=== PATIENT | female | born 1945 | race Caucasian/White ===

== ENCOUNTER → 2017-03-22 | Outpatient (CLI) | payer MEDICARE, OTHER ==
[~2017-03-22] MED LIST: AMLO25TA PO; ASPI81TA85 PO; ATOR1TAB21 PO; CEVI1CAP PO; CLOP75TA2 PO; CYCL25CA2 PO; D 1010004 PO; FLUTISP; HYDR200T3 PO; HYDR25TAB PO; LEFL1TAB4 PO; LISI-538 PO; METO25TA74 PO; NITR4TASL SL; PANT40TA2 PO; RIZA10TA4 PO; TRAM50TA2 PO
[2017-03-22 16:16] LABS: BASO % 0.9 % (0.0-1.0); EOS # 0.2 K/mm3 (0.0-0.50); EOS % 3.5 % (0.0-3.0); LARGE UNSTAINED CELL # 0.2 K/mm3 (0.0-0.4); LARGE UNSTAINED CELL % 2.7 % (0.0-4.0); LYMPH # 1.1 K/mm3 (1.5-4.5); LYMPH % 16.7 % (24.0-44.0); MEAN CORPUSCULAR HEMOGLOBIN 31.3 pg (27.0-33.0); MEAN CORPUSCULAR HGB CONC 33.6 g/dl (32.0-36.5); MEAN CORPUSCULAR VOLUME 93.3 fl (80.0-96.0); MONO # 0.4 K/mm3 (0.0-0.8); NEUTROPHILS # 4.1 K/mm3 (1.8-7.7); NEUTROPHILS % 69.1 % (36.0-66.0); PLATELET COUNT, AUTOMATED 189 k/mm3 (150-450); RED CELL DISTRIBUTION WIDTH 13.4 % (11.5-14.5); WHITE BLOOD COUNT 5.9 K/mm3 (4.0-10.0)
[2017-03-22 16:44] LABS: ANION GAP 5 MEQ/L (8-16); BLOOD UREA NITROGEN 26 MG/DL (7-18); CALCIUM LEVEL 8.6 MG/DL (8.8-10.2); CARBON DIOXIDE LEVEL 29 MEQ/L (21-32); CHLORIDE LEVEL 107 MEQ/L (98-107); CREATININE FOR GFR 1.25 MG/DL (0.55-1.02); GLUCOSE, FASTING 87 MG/DL (83-110); POTASSIUM SERUM 5.1 MEQ/L (3.5-5.1); SODIUM LEVEL 141 MEQ/L (136-145)
== END ==
LOC: M SMT 14:50
PROVIDERS: ATTEND Internal Medicine Cardiovascular Disease
DX: I25.10 Atherosclerotic heart disease of native coronary artery without angina pectoris (principal); R07.9 Chest pain, unspecified; R06.00 Dyspnea, unspecified

== ENCOUNTER → 2017-04-12 | Outpatient (CLI) | payer MEDICARE, OTHER ==
[~2017-04-12] MED LIST changes: -CYCL25CA2 PO; +CYCL25CA6 PO; +METO1TAB32 PO; -METO25TA74 PO
[2017-04-12 13:37] LABS: ALBUMIN 3.6 GM/DL (3.2-5.2); ALBUMIN/GLOBULIN RATIO 1.44 (1.00-1.93); BILIRUBIN,TOTAL 0.6 MG/DL (0.2-1.0); CALCIUM LEVEL 9.1 MG/DL (8.8-10.2); CREATININE FOR GFR 1.09 MG/DL (0.55-1.02); GLOMERULAR FILTRATION RATE 52.7 (>39); POTASSIUM SERUM 4.8 MEQ/L (3.5-5.1); TOTAL PROTEIN 6.1 GM/DL (6.4-8.2)
== END ==
LOC: M SMT 08:25
PROVIDERS: ATTEND Internal Medicine
DX: I10 Essential (primary) hypertension (principal)

== ENCOUNTER → 2017-10-17 | Outpatient (CLI) | payer MEDICARE, OTHER ==
[2017-10-17 18:53] LABS: ALBUMIN 3.9 GM/DL (3.2-5.2); ALKALINE PHOSPHATASE 60 U/L (45-117); ALT/SGPT 22 U/L (12-78); ANION GAP 6 MEQ/L (8-16); AST/SGOT 19 U/L (7-37); BILIRUBIN,TOTAL 0.5 MG/DL (0.2-1.0); BLOOD UREA NITROGEN 17 MG/DL (7-18); CALCIUM LEVEL 8.7 MG/DL (8.8-10.2); CARBON DIOXIDE LEVEL 28 MEQ/L (21-32); CHLORIDE LEVEL 106 MEQ/L (98-107); CHOLESTEROL LEVEL 150 MG/DL (<200); CHOLESTEROL RISK RATIO 2.142 (<5); CREATININE FOR GFR 1.16 MG/DL (0.55-1.02); GLOMERULAR FILTRATION RATE 48.9 (>39); GLUCOSE, FASTING 88 MG/DL (83-110); HDL CHOLESTEROL 70 MG/DL (>40); LDL CHOLESTEROL 54.2 MG/DL (<100); MAGNESIUM LEVEL 2.1 MG/DL (1.8-2.4); NON-HDL-C 80 MG/DL; POTASSIUM SERUM 4.6 MEQ/L (3.5-5.1); SODIUM LEVEL 140 MEQ/L (136-145); TOTAL PROTEIN 6.5 GM/DL (6.4-8.2); TRIGLYCERIDES LEVEL 129 MG/DL (<150)
== END ==
LOC: M SMT 11:08
DX: I25.10 Atherosclerotic heart disease of native coronary artery without angina pectoris (principal); I10 Essential (primary) hypertension
CPT/HCPCS: 83735

== ENCOUNTER → 2019-07-11 | Outpatient (CLI) | payer MEDICARE, OTHER ==
[~2019-07-11] MED LIST changes: +ACTE20IN INJ; +AMLO5TAB6 PO; +CALC1CAP31 PO; +FERR32TA PO; +FLUT50SP17; -FLUTISP; +HYDR-2541 PO; -HYDR25TAB PO; +METO1TAB87 PO; +OMEGCAP4 PO; -PANT40TA2 PO; +PANT40TA3 PO; +PRESCAP PO; +REST0.05 OU; -RIZA10TA4 PO; +RIZA10TA58 PO
[2019-07-11 15:02] LABS: ALBUMIN 3.6 GM/DL (3.2-5.2); PERCENT SATURATION 28.6 % (13.2-45.0)
== END ==
LOC: M LAB 14:02
PROVIDERS: ATTEND Orthopaedic Surgery Adult Reconstructive Orthopaedic Surgery
DX: Z01.818 Encounter for other preprocedural examination (principal); M25.551 Pain in right hip; M16.11 Unilateral primary osteoarthritis, right hip; D63.8 Anemia in other chronic diseases classified elsewhere

== ENCOUNTER 2019-07-15 14:03 | Observation (INO) | payer MEDICARE, OTHER ==
[~2019-07-15] VITALS: Ht 160 cm; Wt 73.8 kg
[~2019-07-15 14:03] MED LIST changes: -ACTE20IN INJ; -AMLO5TAB6 PO; -CALC1CAP31 PO; -FERR32TA PO; -METO1TAB87 PO; -OMEGCAP4 PO; -PRESCAP PO; -REST0.05 OU
[2019-07-15] MEDS ORDERED: ACTE20IN INJ (14:28)
[2019-07-15] MEDS ORDERED: CALC1CAP31 PO (14:28)
--- NOTE | 2019-07-15 15:10 | REP ---
Portable chest x-ray: Single view. History: Chest pain. Comparison study: July 25, 2012. Findings: The patient is status post prior median sternotomy. EKG monitoring electrodes are seen. There are degenerative changes in the thoracic aorta and in the left shoulder. The heart is not felt to be enlarged. The lungs are well inflated and clear. Pleural angles are sharp. Pulmonary vasculature is not increased. Impression: Prior sternotomy. Otherwise no acute disease. Electronically Signed by Bc Riley MD 07/15/2019 06:36 P
[2019-07-15 15:21] LABS: BASO # 0.1 10^3/uL (0.0-0.2); BASO % 0.8 % (0.0-1.0); EOS % 0.7 % (0.0-3.0); HEMATOCRIT 37.8 % (36.0-47.0); HEMOGLOBIN 12.9 g/dl (12.0-15.5); LYMPH # 0.8 10^3/uL (1.5-5.0); LYMPH % 12.8 % (24.0-44.0); MEAN CORPUSCULAR HEMOGLOBIN 33.4 pg (27.0-33.0); MEAN CORPUSCULAR HGB CONC 34.1 g/dl (32.0-36.5); MEAN CORPUSCULAR VOLUME 97.9 fl (80.0-96.0); MONO # 0.7 10^3/uL (0.0-0.8); MONO % 11.3 % (0.0-5.0); NEUTROPHILS # 4.4 10^3/uL (1.5-8.5); NEUTROPHILS % 73.7 % (36.0-66.0); PLATELET COUNT, AUTOMATED 182 10^3/uL (150-450); RED BLOOD COUNT 3.86 10^6/uL (4.00-5.40)
[2019-07-15 15:32] LABS: INR 1.1; PROTHROMBIN TIME 13.9 SECONDS (11.8-14.0)
[2019-07-15 15:33] LABS: PARTIAL THROMBOPLASTIN TIME 23.9 SECONDS (25.0-38.4)
[2019-07-15 15:52] LABS: ALBUMIN 3.5 GM/DL (3.2-5.2); BILIRUBIN,DIRECT 0.2 MG/DL (0.0-0.2); BILIRUBIN,TOTAL 0.6 MG/DL (0.2-1.0); CALCIUM LEVEL 8.4 MG/DL (8.8-10.2); CK-MB VALUE MASS 2.2 NG/ML (<3.6); CREATININE FOR GFR 1.06 MG/DL (0.55-1.30); FREE T4 1.04 NG/DL (0.76-1.46); GLOMERULAR FILTRATION RATE 53.9 (>39); MB/CK RELATIVE INDEX 1.91 (< OR =4); THYROID STIMULATING HORMONE 1.13 uIU/ML (0.358-3.740); TOTAL PROTEIN 5.7 GM/DL (6.4-8.2); TROPONIN I 0.03 NG/ML (< 0.10)
[2019-07-15] MEDS ORDERED: ISOVUE-370 76% 100ML VIAL (Q9967) As Ordered ONE (16:23)
[2019-07-15] MEDS: NITROGLYCERIN 0.4 MG SUBL TABLET SL PRN ×2 (16:54→17:02)
[2019-07-15] MEDS ORDERED: PROHANCE 279.3MG/ML 15ML VIAL (A9576) As Ordered ONE (17:27)
[2019-07-15] MEDS ORDERED: FERR32TA PO (18:32)
[2019-07-15] MEDS ORDERED: OMEGCAP4 PO (18:32)
[2019-07-15] MEDS ORDERED: PRESCAP PO (18:32)
[2019-07-15] MEDS ORDERED: METO1TAB87 PO (18:32)
[2019-07-15] MEDS ORDERED: REST0.05 OU (18:32)
[2019-07-15] MEDS ORDERED: LABETALOL HCL 100 MG/20 ML VIAL IV STA ×2 (20:23→21:18)
[2019-07-15 21:05] LABS: CK-MB VALUE MASS 2.2 NG/ML (<3.6); MB/CK RELATIVE INDEX 2.06 (< OR =4); TROPONIN I 0.03 NG/ML (< 0.10)
--- NOTE | 2019-07-15 21:11 | REPVR ---
PROCEDURE INFORMATION: Exam: MR Angiogram Chest Without and With Contrast Exam date and time: 07/15/2019 5:04 PM Clinical history: 74 years old, female; Other: Chest pain; Additional info: HTN, chest pain rad to back, R/O dissection TECHNIQUE: Imaging protocol: MR angiogram chest without or with intravenous contrast. Contrast material: PROHANCE; Contrast volume: 15 ml; Contrast route: IV; COMPARISON: CR PORTABLE CHEST X-RAY 07/15/2019 2:17 PM FINDINGS: Limitations: Motion artifact does moderately limit the sensitivity of this examination. Aorta: 2.9 cm ascending aorta. Tortuosity of the aortic arch. Mild aortic atherosclerosis. Heart: Numerous renal cysts measuring up to 1.5 cm. Moderate cardiac enlargement. Cardiac bypass graft clips cause associated artifact. Lungs: Unremarkable. Pleural space: No pleural effusion. Gallbladder and bile ducts: Cholecystectomy. Bones/joints: Sternotomy. Mild thoracic spondylosis with several tiny disc bulge/protrusions. Soft tissues: Mild left subclavian artery origin stenosis. IMPRESSION: No aneurysm or dissection. Electronically signed by: Andrés Barrientos On 07/15/2019 21:10:39 PM
[2019-07-15] MEDS ORDERED: MAALOX 30 ML SUSP *UDC PO PRN (23:00)
[2019-07-15] MEDS ORDERED: MOM 30ML SUSPENSION UDC PO PRN (23:00)
[2019-07-15] MEDS ORDERED: ONDANSETRON 4MG/2ML VIAL (J2405) IV PRN (23:00)
[2019-07-15] MEDS ORDERED: NITROGLYCERIN 0.4 MG SUBL TABLET SL PRN (23:00)
[2019-07-15] MEDS ORDERED: ACETAMINOPHEN TAB 650MG DOSE (2X325MG) PO PRN (23:00)
[2019-07-15] MEDS ORDERED: traMADol 50 MG TAB PO PRN (23:00)
--- NOTE | 2019-07-15 23:02 | HPEPDOC ---
General Date of Admission 07/15/19 Date of Service: Jul 15, 2019 Primary Care Physician: Rolo Sweeney Chief Complaint The patient is a 74-year-old female admitted with a reason for visit of Chest Pain. Source: Patient Exam Limitations: No limitations Timing/Duration: Other Severity: Moderate (today) Associated Symptoms: Vomiting History of Present Illness This is a 74 years old white female with past medical history of CAD. Essential hypertension, pericardial pain, hyperlipidemia, has been complaining of vomiting on and off since last 2 to weeks, and again today. She had midsternal chest pain radiating to her son, neck, not associated with nausea, vomiting, not relieved with the nitroglycerin, not exacerbated by any position. She was seen by Dr. Ayon, in ED, he wants patient to be admitted for better control of blood pressure and follow-up troponin levels. Patient did not had any episode of vomiting while in the ED. Patient denies nausea, abdominal pain, shortness of breath, dizziness, etc. Home Medications Scheduled Amlodipine Besylate (Amlodipine Besylate) 2.5 Mg Tab, 2.5 MG PO QHS, (Reported) Aspirin (Aspir 81) 81 Mg Tab, 81 MG PO QHS, (Reported) Atorvastatin Calcium (Atorvastatin Calcium) 20 Mg Tab, 20 MG PO DAILY, (Repo rted) NOON Calcitriol (Calcitriol) 0.25 Mcg Capsule, 0.25 MCG PO DAILY, (Reported) Cholecalciferol (Vitamin D3) (Vitamin D3) 1,000 Unit Cap, 1,000 UNIT PO DAILY, (Reported) Clopidogrel Bisulfate (Clopidogrel) 75 Mg Tab, 75 MG PO DAILY, (Reported) Cyclosporine (Restasis) 0.05% Droperette, 1 DROP OU QHS, (Reported) Ferrous Gluconate (Ferrous Gluconate) 324 Mg Tablet, 324 MG PO DAILY, (Reported) Hydroxychloroquine Sulfate (Hydroxychloroquine Sulfate) 200 Mg Tab, 200 MG PO BID, (Reported) Leflunomide (Leflunomide) 20 Mg Tab, 20 MG PO DAILY, (Reported) Metoprolol Tartrate (Metoprolol Tartrate) 25 Mg Tablet, 25 MG PO BID, (Reported) [place]-3/Dha/Epa/Fish Oil ([place]-3 Fish Oil 1,000 mg Sfgl) 1,000 Mg Capsule, 3 CAP PO DAILY, (Reported) Pantoprazole Sodium (Pantoprazole Sodium) 40 Mg Tab, 40 MG PO QHS, (Reported) Rizatriptan Benzoate (Rizatriptan) 10 Mg Tab, 10 MG PO DAILY, (Reported) Tocilizumab (Actemra) 162 Mg/0.9 Ml Syringe, 0.9 ML INJ 1XWK, (Reported) Vit A/Vit C/Vit E/Zinc/Copper (Preservision Areds Softgel) 1 Each Capsule, 1 CAP PO DAILY, (Reported) Scheduled PRN Cevimeline HCl (Cevimeline HCl) 30 Mg Cap, 30 MG PO BID PRN for DRY MOUTH, (Reported) Nitroglycerin (Nitrostat) 0.4 Mg Subl, 0.4 MG SL for CHEST PAIN, (Reported) Tramadol HCl (Tramadol HCl) 50 Mg Tab, 50 MG PO for PAIN, (Reported) Allergies Coded Allergies: Iodinated Contrast Media (Verified Allergy, Severe, 07/15/19) Penicillins (Verified Allergy, Intermediate, RASH, 07/15/19) lactose (Verified Allergy, Unknown, 07/15/19) fluorescein (Verified Adverse Reaction, Mild, FAINTED/ SYNCOPY, 07/15/19) Past Medical History Medical History Hypertension, CAD, CABG, hyperlipidemia, cholecystectomy, knee surgery, partial hysterectomy and shoulder surgery Surgical History As above Social History * Smoker: Denies Alcohol: Denies A-FIB/CHADSVASC A-FIB History Current/History of A-Fib/PAF?: No Review of Systems Constitutional: Denies: Chills, Fever, Malaise, Night Sweats, Weakness, Fatigue, Weight Loss, Lethargy, Other Eyes: Denies: Pain, Vision change, Conjunctivae inflammation, Eyelid inflammation, Redness, Other ENT: Denies: Head Aches, Ear Pain, Dysphagia, Sinus Congestion, Post Nasal Drip, Sore Throat, Epistaxis, Other Symptoms Skin: Denies: Rash, Lesions, Jaundice, Bruising, Itching, Dry, Breakdown, Nail Changes, Other Pulmonary: Denies: Dyspnea, Cough, Pleuritic Chest Pain, Other Symptoms Cardiovascular: Reports: Chest Pain Gastrointestinal: Reports: Vomiting Genitourinary: Denies: Dysuria, Frequency, Incontinence, Hematuria, Retention, Other Symptoms Hematologic: Denies: Bruising, Bleeding Excessively, Petecchia, Purpura, Enlarged Lymph Nodes, Other Hematologic Endocrine: Denies: Polydipsia, Polyphagia, Polyuria, Heat Intolerance, Cold Intolerance, Other Endocrine Sx Musculoskeletal: Denies: Neck Pain, Back Pain, Shoulder Pain, Arm Pain, Hand Pain, Leg Pain, Foot Pain, Joint Pain, Muscle Pain, Spasms, Other Symptoms Neurological: Denies: Weakness, Numbness, Incoordination, Change in speech, Confusion, Seizures, Other Symptoms Psych: Denies: Mood Normal, Anxiety, Depression, Memory Issues, Thoughts of Self Harm, Anger, Thoughts of Harming Other, Other Psych Physical Examination General Exam: Positive: Alert, Cooperative Eye Exam: Positive: PERRLA, Conjunctiva & lids normal ENT Exam: Positive: Atraumatic, Mucous membr. moist/pink Neck Exam: Positive: Supple, JVD Chest Exam: Positive: Clear to auscultation, Normal air movement Heart Exam: Positive: Rate Normal, Normal S1, Normal S2 Abdomen Exam: Positive: Normal bowel sounds, Soft Extremity Exam: Positive: Normal pulses Skin Exam: Positive: Nl turgor and temperature Neuro Exam: Positive: Normal Gait, Strength at 5/5 X4 ext, Sensation Intact Psych Exam: Positive: Mental status NL, Mood NL, Oriented x 3 Vital Signs Vital Signs Date Time Temp Pulse Resp B/P (MAP) Pulse Ox O2 Delivery O2 Flow Rate FiO2 07/15/19 22:14 73 176/79 (111) 07/15/19 21:39 20 96 Room Air 07/15/19 14:10 98.4 Laboratory Data Labs 24H Laboratory Tests 2 07/15/19 15:05: Immature Granulocyte % (Auto) 0.7, White Blood Count 6.0, Red Blood Count 3.86L, Hemoglobin 12.9, Hematocrit 37.8, Mean Corpuscular Volume 97.9H, Mean Corpuscular Hemoglobin 33.4H, Mean Corpuscular Hemoglobin Concent 34.1, Red Cell Distribution Width 13.0, Platelet Count 182, Neutrophils (%) (Auto) 73.7H, Lymphocytes (%) (Auto) 12.8L, Monocytes (%) (Auto) 11.3H, Eosinophils (%) (Auto) 0.7, Basophils (%) (Auto) 0.8, Neutrophils # (Auto) 4.4, Lymphocytes # (Auto) 0.8L, Monocytes # (Auto) 0.7, Eosinophils # (Auto) 0.0, Basophils # (Auto) 0.1, Nucleated Red Blood Cells % (auto) 0.0, Prothrombin Time 13.9, Prothromb Time International Ratio 1.10, Activated Partial Thromboplast Time 23.9L, Anion Gap 6L, Glomerular Filtration Rate 53.9, Calcium Level 8.4L, Aspartate Amino Transf (AST/SGOT) 33, Alanine Aminotransferase (ALT/SGPT) 43, Alkaline Phosphatase 57, Total Bilirubin 0.6, Direct Bilirubin 0.2, Total Creatine Kinase 115, Creatine Kinase MB 2.2, Creatine Kinase MB Relative Index 1.91, Troponin I 0.03, Total Protein 5.7L, Albumin 3.5, Albumin/Globulin Ratio 1.59, Lipase 71L, Thyroid Stimulating Hormone (TSH) 1.130, Free Thyroxine 1.04 07/15/19 20:29: Total Creatine Kinase 107, Creatine Kinase MB 2.2, Creatine Kinase MB Relative Index 2.06, Troponin I 0.03 CBC/BMP Laboratory Tests 07/15/19 15:05 Red Blood Count 3.86 L, Mean Corpuscular Volume 97.9 H, Mean Corpuscular Hemoglobin 33.4 H, Mean Corpuscular Hemoglobin Concent 34.1, Red Cell Distribution Width 13.0, Neutrophils (%) (Auto) 73.7 H, Lymphocytes (%) (Auto) 12.8 L, Monocytes (%) (Auto) 11.3 H, Eosinophils (%) (Auto) 0.7, Basophils (%) (Auto) 0.8, Neutrophils # (Auto) 4.4, Lymphocytes # (Auto) 0.8 L, Monocytes # (Auto) 0.7, Eosinophils # (Auto) 0.0, Basophils # (Auto) 0.1 Problems (1) Chest pain Status: Acute Problem Text: 74 years old white female with past medical history of CAD status post CABG, essential hypertension and tablet, vomiting on and off last 2 weeks, and since since today she developed left-sided chest pain with radiation to his neck, but no nausea, vomiting at the present time. She was seen by Dr. Hays in ED and recommended to admit patient for better blood pressure control and follow Third troponin. Patient EKG is normal sinus rhythm with nonspecific ST-T changes, chest, MRI negative for dissection or aneurysm. Chest x-ray does not show any acute pulmonary or cardiac etiology. Troponin is 2, 0.03 , Most likely atypical chest pain Admitted to PCU for further observation Telemetry monitoring Cardiology consult with Dr. Hays Follow third troponin A.m. level work Continue all home meds DVT prophylaxis with Lovenox 2 g sodium diet Activity as tolerated (2) Hypertensive urgency Status: Acute Problem Text: Continue all home meds Increase Norvasc to 5 mg by mouth daily Hydralazine 10 mg IV every 6 hours when necessary for systolic more than 150 Monitor blood pressure closely and adjust the dosage of medicine as needed (3) Vomiting Status: Acute Problem Text: As per patient, she has been complaining of vomiting since the last 2 weeks on and off Patient been asymptomatic while in ED Will monitor clinically. If she is asymptomatic. She can have a GI workup done as an outpatient Plan / VTE VTE Prophylaxis Ordered?: Yes MICHA REID MD Jul 15, 2019 23:01
[2019-07-16 00:03] VITALS: BP 146/84
[2019-07-16 04:00] VITALS: BP 126/62
[2019-07-16 05:31] VITALS: BP 158/84
[2019-07-16] MEDS: hydrALAZINE INJ 20 MG/ML VIAL IV SCH ×2 (05:39)
--- NOTE | 2019-07-16 07:32 | ECGEPIP ---
[facility] Test Date: 2019-07-16 Pat Name: DYLAN LONGORIA Department: Room: [place] [address] Gender: Female Executive Sales Manager: ANTHONY : 1945 Requested By: MICHA REID Order Number: [id number] Reading MD: Yanelis Lovell Measurements Intervals [place] Rate: 61 P: -16 HI: 211 QRS: 26 QRSD: 107 T: 28 QT: 428 QTc: 432 Interpretive Statements SINUS RHYTHM WITH FIRST DEGREE AV BLOCK ANTERIOR ST & T-WAVE ABNORMALITY MORE EXTENSIVE C/W 07/15/19 Electronically Signed on 07-16-2019 7:32:30 EDT by Yanelis Lovell
--- NOTE | 2019-07-16 07:39 | ECGEPIP ---
[facility] - ED Test Date: 2019-07-15 Pat Name: DYLAN LONGORIA Department: Room: - Gender: Female Management Trainee Marketing: nya : 1945 Requested By: Vinh Strong Order Number: [id number] Reading MD: Vinh Olivas Measurements Intervals [place] Rate: 63 P: 3 VA: 212 QRS: 11 QRSD: 102 T: 50 QT: 410 QTc: 422 Interpretive Statements SINUS RHYTHM WITH FIRST DEGREE AV BLOCK NONSPECIFIC T-WAVE ABNORMALITY NO PRIORS FOR COMPARISON Electronically Signed on 07-16-2019 7:38:39 EDT by Vinh Olivas
--- NOTE | 2019-07-16 07:50 | ECGEPIP ---
[facility] - ED Test Date: 2019-07-15 Pat Name: DYLAN LONGORIA Department: Room: [place] [address] Gender: Female Hospice Patient Care Secretary: porter : 1945 Requested By: PRACHI Rose Order Number: [id number] Reading MD: Vinh Olivas Measurements Intervals [place] Rate: 65 P: -8 AR: 211 QRS: 7 QRSD: 104 T: 33 QT: 428 QTc: 447 Interpretive Statements SINUS RHYTHM WITH FIRST DEGREE AV BLOCK NONSPECIFIC ST & T-WAVE ABNORMALITY SIMILAR TO PRIOR ON SAME DATE Electronically Signed on 07-16-2019 7:50:12 EDT by Vinh Olivas
[2019-07-16 07:52] LABS: HEMATOCRIT 37.7 % (36.0-47.0); HEMOGLOBIN 12.4 g/dl (12.0-15.5); MEAN CORPUSCULAR HEMOGLOBIN 32.4 pg (27.0-33.0); MEAN CORPUSCULAR HGB CONC 32.9 g/dl (32.0-36.5); MEAN CORPUSCULAR VOLUME 98.4 fl (80.0-96.0); PLATELET COUNT, AUTOMATED 173 10^3/uL (150-450); RED BLOOD COUNT 3.83 10^6/uL (4.00-5.40); WHITE BLOOD COUNT 5.3 10^3/uL (4.0-10.0)
[2019-07-16 08:00] VITALS: BP 120/70
[2019-07-16 08:23] LABS: ALBUMIN 3.3 GM/DL (3.2-5.2); BILIRUBIN,TOTAL 0.7 MG/DL (0.2-1.0); CALCIUM LEVEL 8.3 MG/DL (8.8-10.2); CREATININE FOR GFR 1.05 MG/DL (0.55-1.30); GLOMERULAR FILTRATION RATE 54.5 (>39); POTASSIUM SERUM 3.8 MEQ/L (3.5-5.1); TOTAL PROTEIN 5.7 GM/DL (6.4-8.2); TROPONIN I 0.03 NG/ML (< 0.10)
[2019-07-16] MEDS ORDERED: OMEGA-3 1000MG CAPSULE PO SCH (09:00)
[2019-07-16] MEDS ORDERED: HYDROXYCHLOROQUINE 200 MG TAB PO SCH (09:00)
[2019-07-16] MEDS ORDERED: CALCITRIOL 0.25 MCG CAP (S0169) PO SCH (09:00)
[2019-07-16] MEDS ORDERED: NEORAL 25 MG CAP (J7515) PO SCH (09:00)
[2019-07-16] MEDS ORDERED: FERROUS GLUCONATE 324 MG TAB PO SCH (09:00)
[2019-07-16] MEDS ORDERED: CLOPIDOGREL 75 MG TAB PO SCH (09:00)
[2019-07-16] MEDS ORDERED: DOCUSATE SODIUM 100 MG CAP PO SCH (09:00)
[2019-07-16] MEDS ORDERED: OCUVITE 1 TAB PO SCH (09:00)
[2019-07-16] MEDS ORDERED: VITAMIN D 1,000 INTERNATIONAL UNITS TABLET PO SCH (09:00)
[2019-07-16] MEDS ORDERED: METOPROLOL TART 25 MG TABLET PO SCH (09:00)
[2019-07-16] MEDS ORDERED: ATORVASTATIN 20 MG TAB PO SCH (09:00)
[2019-07-16] MEDS ORDERED: RIZATRIPTAN MLT 10 MG TAB PO PRN (09:00)
[2019-07-16] MEDS ORDERED: amLODIPine 5 MG TAB PO SCH (09:00)
[2019-07-16] MEDS ORDERED: ENOXAPARIN 40 MG/0.4 ML SYRINGE (J1650) SC SCH (09:00)
[2019-07-16 09:02] VITALS: BP 120/70
[2019-07-16] MEDS ORDERED: AMLO5TAB6 PO (10:48)
[2019-07-16 12:00] VITALS: BP 130/80
--- NOTE | 2019-07-16 18:36 | DS.PDOC ---
Discharge Summary General Date of Admission Jul 15, 2019 at 14:04 Date of Discharge 07/16/19 Attending Physician: PANFILO DIAS MD Discharge Summary PROCEDURES PERFORMED DURING STAY: [None]. ADMITTING DIAGNOSES: 1. Hypertensive Urgency 2. Chest pain 3. Vomiting DISCHARGE DIAGNOSES: 1. Hypertensive Urgency 2. Chest pain 3. Vomiting COMPLICATIONS/CHIEF COMPLAINT: Chest Pain,Hypertensive Urgency. HISTORY OF PRESENT ILLNESS: Patient is a 74 year old female with a past medical history significant for coronary disease, essential hypertension, hyperlipidemia who presented to [facility] MRSA department with complaint of on and off vomiting for the past 2 weeks as well as midsternal chest pain radiating to her neck. Patient stated that she has a history of hypertension which is poorly controlled. The patient received an EKG which demonstrated normal sinus rhythm, nonspecific ST changes. She received an MRI of the chest which was negative for aortic dissection. Patient also received a chest x-ray which did not show any acute pulmonary or cardiac etiology. She was seen by Dr. Hays of cardiology who recommended inpatient observation and better blood pressure control. Patient received troponins which were negative. On admission the patient received labetalol IV as well as a Nitrostat. Her blood pressure and chest pain had resolved. Patient was observed overnight on telemetry. There were no events noted on telemetry overnight. This morning the patient's blood pressure was under well control and she was discharged with an increase in her Norvasc dose. Patient was continued on her Lopressor 25 mg twice a day dosing. Her Norvasc dose was increased from 2.5 to 5 mg daily. DISCHARGE MEDICATIONS: Please see below. ALLERGIES: Please see below. PHYSICAL EXAMINATION ON DISCHARGE: VITAL SIGNS: Please see below. GENERAL: Awake Alert and oriented. No acute distress, lying comfortably in bed HEENT:, Atraumatic normocephalic. Eyes nonicteric. Trachea is midline NECK: No palpable supraclavicular, axillary or cervical lymphadenopathy CARDIOVASCULAR EXAMINATION:. Normal S1, S2, regular rate and rhythm. No clicks, rubs or murmurs RESPIRATORY EXAMINATION:. Clear vesicular breath sounds bilaterally. Good respiratory effort. No wheezes, rhonchi or rales ABDOMINAL EXAMINATION:. Soft, nondistended, nontender to Palpation in all 4 quadrants. No rebound tenderness or guarding. Normoactive bowel sounds EXTREMITIES: No edema. Full and equal Pulses in bilateral upper and lower extremities SKIN: No Rash or lesions NEUROLOGICAL EXAMINATION: No focal Neurological deficits PSYCHIATRIC EXAMINATION: Mood and affect appear appropriate LABORATORY DATA: Please see below. IMAGING: Portable chest x-ray: Single view. History: Chest pain. Comparison study: July 25, 2012. Findings: The patient is status post prior median sternotomy. EKG monitoring electrodes are seen. There are degenerative changes in the thoracic aorta and in the left shoulder. The heart is not felt to be enlarged. The lungs are well inflated and clear. Pleural angles are sharp. Pulmonary vasculature is not increased. Impression: Prior sternotomy. Otherwise no acute disease. Electronically Signed by Bc Riley MD 07/15/2019 06:36 P PROCEDURE INFORMATION: Exam: MR Angiogram Chest Without and With Contrast Exam date and time: 07/15/2019 5:04 PM Clinical history: 74 years old, female; Other: Chest pain; Additional info: HTN, chest pain rad to back, R/O dissection TECHNIQUE: Imaging protocol: MR angiogram chest without or with intravenous contrast. Contrast material: PROHANCE; Contrast volume: 15 ml; Contrast route: IV; COMPARISON: CR PORTABLE CHEST X-RAY 07/15/2019 2:17 PM FINDINGS: Limitations: Motion artifact does moderately limit the sensitivity of this examination. Aorta: 2.9 cm ascending aorta. Tortuosity of the aortic arch. Mild aortic atherosclerosis. Heart: Numerous renal cysts measuring up to 1.5 cm. Moderate cardiac enlargement. Cardiac bypass graft clips cause associated artifact. Lungs: Unremarkable. Pleural space: No pleural effusion. Gallbladder and bile ducts: Cholecystectomy. Bones/joints: Sternotomy. Mild thoracic spondylosis with several tiny disc bulge/protrusions. Soft tissues: Mild left subclavian artery origin stenosis. IMPRESSION: No aneurysm or dissection. Electronically signed by: Andrés Barrientos On 07/15/2019 21:10:39 PM PROGNOSIS: Good ACTIVITY: [As tolerated]. DIET:. 2 g sodium diet DISCHARGE PLAN:. Patient is to be discharged home with follow up with cardiology. She is to follow-up with her primary care physician in one to 2 weeks. Patient is continue her metoprolol 25 mg twice a day. Her Norvasc dose has been increased from 2.5 mg daily to 5 mg daily. DISPOSITION: 01 Home, Self-Care. DISCHARGE CONDITION: [Stable]. TIME SPENT ON DISCHARGE: Greater than 40 minutes. Vital Signs/I&Os Vital Signs Date Time Temp Pulse Resp B/P (MAP) Pulse Ox O2 Delivery O2 Flow Rate FiO2 07/16/19 12:00 97.7 58 17 130/80 (97) 96 07/15/19 23:05 Room Air I&O- Last 24 Hours up to 6 AM 07/16/19 06:00 Intake Total 0 ml Output Total 400 ml Balance -400 ml Laboratory Data Labs 24H Laboratory Tests 2 07/15/19 20:29: Total Creatine Kinase 107, Creatine Kinase MB 2.2, Creatine Kinase MB Relative Index 2.06, Troponin I 0.03 07/16/19 07:29: Troponin I 0.03, Nucleated Red Blood Cells % (auto) 0.0, Anion Gap 5L, Glomerular Filtration Rate 54.5, Blood Urea Nitrogen 11, Creatinine 1.05, Sodium Level 142, Potassium Level 3.8, Chloride Level 110H, Carbon Dioxide Level 27, Calcium Level 8.3L, Aspartate Amino Transf (AST/SGOT) 31, Alanine Aminotransferase (ALT/SGPT) 42, Alkaline Phosphatase 52, Total Bilirubin 0.7, Total Protein 5.7L, Albumin 3.3, Albumin/Globulin Ratio 1.38 CBC/BMP Laboratory Tests 07/16/19 07:29 Red Blood Count 3.83 L, Mean Corpuscular Volume 98.4 H, Mean Corpuscular Hemoglobin 32.4, Mean Corpuscular Hemoglobin Concent 32.9, Red Cell Distribution Width 13.1, Calcium Level 8.3 L, Aspartate Amino Transf (AST/SGOT) 31, Alanine Aminotransferase (ALT/SGPT) 42, Alkaline Phosphatase 52, Total Bilirubin 0.7, Total Protein 5.7 L, Albumin 3.3 Discharge Medications Scheduled Amlodipine Besylate (Amlodipine Besylate) 5 Mg Tablet, 5 MG PO DAILY Aspirin (Aspir 81) 81 Mg Tab, 81 MG PO QHS, (Reported) Atorvastatin Calcium (Atorvastatin Calcium) 20 Mg Tab, 20 MG PO DAILY, (Reported) NOON Calcitriol (Calcitriol) 0.25 Mcg Capsule, 0.25 MCG PO DAILY, (Reported) Cholecalciferol (Vitamin D3) (Vitamin D3) 1,000 Unit Cap, 1,000 UNIT PO DAILY, (Reported) Clopidogrel Bisulfate (Clopidogrel) 75 Mg Tab, 75 MG PO DAILY, (Reported) Cyclosporine (Restasis) 0.05% Droperette, 1 DROP OU QHS, (Reported) Ferrous Gluconate (Ferrous Gluconate) 324 Mg Tablet, 324 MG PO DAILY, (Reported) Hydroxychloroquine Sulfate (Hydroxychloroquine Sulfate) 200 Mg Tab, 200 MG PO BID, (Reported) Leflunomide (Leflunomide) 20 Mg Tab, 20 MG PO DAILY, (Reported) Metoprolol Tartrate (Metoprolol Tartrate) 25 Mg Tablet, 25 MG PO BID, (Reported) [place]-3/Dha/Epa/Fish Oil ([place]-3 Fish Oil 1,000 mg Sfgl) 1,000 Mg Capsule, 3 CAP PO DAILY, (Reported) Pantoprazole Sodium (Pantoprazole Sodium) 40 Mg Tab, 40 MG PO QHS, (Reported) Rizatriptan Benzoate (Rizatriptan) 10 Mg Tab, 10 MG PO DAILY, (Reported) Tocilizumab (Actemra) 162 Mg/0.9 Ml Syringe, 0.9 ML INJ 1XWK, (Reported) Vit A/Vit C/Vit E/Zinc/Copper (Preservision Areds Softgel) 1 Each Capsule, 1 CAP PO DAILY, (Reported) Scheduled PRN Cevimeline HCl (Cevimeline HCl) 30 Mg Cap, 30 MG PO BID PRN for DRY MOUTH, (Reported) Nitroglycerin (Nitrostat) 0.4 Mg Subl, 0.4 MG SL for CHEST PAIN, (Reported) Tramadol HCl (Tramadol HCl) 50 Mg Tab, 50 MG PO for PAIN, (Reported) Allergies Coded Allergies: Iodinated Contrast Media (Verified Allergy, Severe, 07/15/19) Penicillins (Verified Allergy, Intermediate, RASH, 07/15/19) lactose (Verified Allergy, Unknown, 07/15/19) fluorescein (Verified Adverse Reaction, Mild, FAINTED/ SYNCOPY, 07/15/19) ENDY HALE DO Jul 16, 2019 18:36
[2019-07-16] MEDS ORDERED: ASPIRIN 81 MG ENTERIC TAB PO SCH (21:00)
[2019-07-16] MEDS ORDERED: PANTOPRAZOLE 40MG TAB (PROTONIX) PO SCH (21:00)
== END 2019-07-16 12:26 | disposition home or self-care (01) ==
LOC: M ED 14:03 → EDBD 14:03 → M ED INP 14:04 → M PCU 07-16 00:03
PROVIDERS: ADMIT Internal Medicine; ATTEND Internal Medicine
DX: I16.0 Hypertensive urgency (principal); R07.9 Chest pain, unspecified; R11.10 Vomiting, unspecified; I25.10 Atherosclerotic heart disease of native coronary artery without angina pectoris; I10 Essential (primary) hypertension; E78.49 Other hyperlipidemia; Z79.82 Long term (current) use of aspirin; Z79.899 Other long term (current) drug therapy; Z88.0 Allergy status to penicillin; E73.9 Lactose intolerance, unspecified; Z91.041 Radiographic dye allergy status; Z88.8 Allergy status to other drugs, medicaments and biological substances; Z95.1 Presence of aortocoronary bypass graft
CPT/HCPCS: 36415; 71045; 80048; 80053; 80076; 82550; 82553; 83690; 84439; 84443; 84484; 85025; 85027; 85610; 85730; 93005; 93041; 94760; 96372; 96374; 96375; 96376; 99285; A9576; C8909; G0378; J1650; J2405

== ENCOUNTER → 2020-02-26 | Outpatient (CLI) | payer MEDICARE, BC ==
[~2020-02-26] MED LIST changes: +ACTE20IN INJ; +AMLO5TAB6 PO; +CALC1CAP31 PO; +E-Z-GAS II EFFERVESCENT PACKET (SODIUM BICARB./CITRIC ACID/SIMETHICONE) As Ordered ONE; +E-Z-HD 98% w/w 340GM SUSP BTL As Ordered ONE; +E-Z-PAQUE 96% w/w SUSP 176GM BTL As Ordered ONE; +FERR32TA PO; +METO1TAB87 PO; +OMEGCAP4 PO; +PRESCAP PO; +REST0.05 OU
--- NOTE | 2020-02-27 11:18 | REP ---
Upper GI air contrast The procedure was performed under the direct supervision of Dr. Schmidt. The images were reviewed with Dr. Schmidt. The produce buyer film shows no organomegaly or pathological masses. The intestinal gas pattern is non-specific. There are surgical clips in the right upper quadrant. The patient is status post right hip arthroplasty. Liquid barium and gas producing crystals were given in the erect position as well as liquid barium in the prone oblique position in order to perform a double contrast upper GI examination. The oral and pharyngeal stages of deglutition are unremarkable. There are esophageal transport there are tertiary waves demonstrated. There is no esophagitis, stricture or mucosal ring. There is a small hiatal hernia. Gastroesophageal reflux is not demonstrated on this examination. The stomach nguyễn are normally outlined . The rugal folds are smooth and regular. There is no gastritis neoplasm or ulcer disease. There are thickened folds in the duodenum which may represent duodenitis. There is no mihai ulcer identified. The visualized portion of the proximal small bowel appears normal in course and caliber. Impression: 1. Tertiary waves. 2. There is a small hiatal hernia. 3. There are thickened folds in the duodenum which may represent duodenitis. There is no mihai ulcer identified. 0.9 minutes of fluoro time was utilized for this procedure. Electronically Signed by PEYTON Mace 02/26/2020 05:37 P Electronically Signed by Isidoro Schmidt MD 02/27/2020 11:10 A
== END ==
LOC: M RAD 09:29
PROVIDERS: ATTEND Physician Assistant Medical
DX: K31.9 Disease of stomach and duodenum, unspecified (principal); K44.9 Diaphragmatic hernia without obstruction or gangrene; R13.10 Dysphagia, unspecified; K21.9 Gastro-esophageal reflux disease without esophagitis; R11.2 Nausea with vomiting, unspecified

== ENCOUNTER → 2020-05-11 | Outpatient (REF) | payer MEDICARE, BC ==
[~2020-05-11] MED LIST changes: +AMLO1TAB24 PO; -AMLO5TAB6 PO; -ASPI81TA85 PO; +ASPI81TA86 PO; -E-Z-GAS II EFFERVESCENT PACKET (SODIUM BICARB./CITRIC ACID/SIMETHICONE) As Ordered ONE; -E-Z-HD 98% w/w 340GM SUSP BTL As Ordered ONE; -E-Z-PAQUE 96% w/w SUSP 176GM BTL As Ordered ONE; +PANT40TA29 PO; -PANT40TA3 PO
== END ==
LOC: M LAB REF 11:37
PROVIDERS: ATTEND Physician Assistant
DX: R30.0 Dysuria (principal)

== ENCOUNTER → 2020-05-23 | Outpatient (REF) | payer MEDICARE, BC | LOC: M LAB REF 13:25 | PROVIDERS: ATTEND Nurse Practitioner Family | DX: R30.0 Dysuria (principal) ==

== ENCOUNTER → 2020-06-16 | Outpatient (REF) | payer MEDICARE, BC | LOC: M SFHCPLAZ 16:59 | PROVIDERS: ATTEND Physician Assistant | DX: Z79.899 Other long term (current) drug therapy (principal) ==

== ENCOUNTER → 2020-07-07 | Outpatient (REF) | payer MEDICARE, BC | LOC: M SFHCPLAZ 09:58 | PROVIDERS: ATTEND Internal Medicine | DX: R10.2 Pelvic and perineal pain (principal); R30.0 Dysuria ==

== ENCOUNTER → 2020-10-21 | Outpatient (CLI) | payer MEDICARE, BC ==
[~2020-10-21] MED LIST changes: +CARV12.5 PO; +COLA100C5 PO; +ECOT81TA5 PO; +FLON1SPR NARES; +IRBE150T7 PO; -LISI-538 PO; +LISI20TA33 PO; +MAGN400C2 PO; +ONDA4TAB6 PO; +[UNRECOGNIZED DRUG - OTHER] PO
== END ==
LOC: M LABSMTC 11:19
PROVIDERS: ATTEND Anesthesiology
DX: Z01.812 Encounter for preprocedural laboratory examination (principal); Z20.828 Contact with and (suspected) exposure to other viral communicable diseases

== ENCOUNTER 2020-10-26 11:32 | Day surgery (SDC) | payer MEDICARE, BC ==
[~2020-10-26] VITALS: Ht 157.5 cm; Wt 77.1 kg
[~2020-10-26 11:32] MED LIST changes: -FLON1SPR NARES; +NS 1,000 ML IV ONE; -[UNRECOGNIZED DRUG - OTHER] PO
[2020-10-26] MEDS ORDERED: propofoL 200 MG/20 ML VIAL As Ordered ONE (11:45)
[2020-10-26] MEDS ORDERED: LIDOCAINE 2% 100MG/5ML SDV (FOR ANES.) As Ordered ONE (11:45)
[2020-10-26] MEDS ORDERED: FLON1SPR NARES (12:22)
[2020-10-26] MEDS ORDERED: [UNRECOGNIZED DRUG - OTHER] PO (12:22)
--- NOTE | 2020-10-26 13:48 | ROOR ---
Patient Name: Tasha Blake Procedure Date: 10/26/2020 1:23 PM Date of : 1945 Age: 75 Room: [facility] Gender: Female Note Status: Finalized Procedure: Upper GI endoscopy Indications: Esophageal dysphagia, Heartburn Providers: Andrés FARAH MD Referring MD: Rolo Sweeney MD Requesting Provider: Medicines: Monitored Anesthesia Care Complications: No immediate complications. Procedure: Pre-Anesthesia Assessment: - The heart rate, respiratory rate, oxygen saturations, blood pressure, adequacy of pulmonary ventilation, and response to care were monitored throughout the procedure. The Endoscope was introduced through the mouth, and advanced to the second part of duodenum. The upper GI endoscopy was accomplished without difficulty. The patient tolerated the procedure well. Findings: The examined esophagus was normal. A TTS dilator was passed through the scope. Empiric dilation with a 15-16.5-18 mm balloon dilator was performed to 18 mm (distal, mid and proximal esophagus). The dilation site was examined and showed no change. Small Hiatal Hernia. Scattered mild inflammation characterized by erythema was found in the stomach. Biopsies were taken with a cold forceps for histology. The exam of the stomach was otherwise normal. The examined duodenum was normal. Impression: - Normal esophagus. Dilation performed with 18 mm balloon. - Small Hiatal Hernia. - Mild gastritis. Biopsied. - The stomach is otherwise normal. - Normal examined duodenum. Recommendation: - Continue present medications. - Observe patient's clinical course. - Resume Plavix (clopidogrel) at prior dose tomorrow. Procedure Code(s): --- Professional --- 44044, Esophagogastroduodenoscopy, flexible, transoral; with transendoscopic balloon dilation of esophagus (less than 30 mm diameter) 22707, 59, Esophagogastroduodenoscopy, flexible, transoral; with biopsy, single or multiple Diagnosis Code(s): --- Professional --- R12, Heartburn R13.14, Dysphagia, pharyngoesophageal phase K29.70, Gastritis, unspecified, without bleeding CPT copyright 2019 [employer]. All rights reserved. The codes documented in this report are preliminary and upon refrigerating technician review may be revised to meet current compliance requirements. Andrés Farah MD Andrés FARAH MD 10/26/2020 1:48:08 PM Electronically signed by Andrés FARAH MD Number of Addenda: 0 Note Initiated On: 10/26/2020 1:23 PM Estimated Blood Loss: Estimated blood loss: none.
[2020-10-26 14:05] VITALS: BP 193/91
== END 2020-10-26 14:11 | disposition home or self-care (01) ==
LOC: M OPP 11:32
PROVIDERS: ATTEND Internal Medicine Gastroenterology
DX: R13.14 Dysphagia, pharyngoesophageal phase (principal); R12 Heartburn; K44.9 Diaphragmatic hernia without obstruction or gangrene; K29.70 Gastritis, unspecified, without bleeding; I25.2 Old myocardial infarction; I10 Essential (primary) hypertension; E78.5 Hyperlipidemia, unspecified; M19.90 Unspecified osteoarthritis, unspecified site; F41.9 Anxiety disorder, unspecified; M06.9 Rheumatoid arthritis, unspecified; I25.10 Atherosclerotic heart disease of native coronary artery without angina pectoris; K21.9 Gastro-esophageal reflux disease without esophagitis; Z95.5 Presence of coronary angioplasty implant and graft; Z96.641 Presence of right artificial hip joint; Z88.0 Allergy status to penicillin; Z91.011 Allergy to milk products; Z91.041 Radiographic dye allergy status; Z91.09 Other allergy status, other than to drugs and biological substances; Z79.82 Long term (current) use of aspirin; Z79.899 Other long term (current) drug therapy; Z82.49 Family history of ischemic heart disease and other diseases of the circulatory system; Z83.3 Family history of diabetes mellitus; Z80.3 Family history of malignant neoplasm of breast; Z80.1 Family history of malignant neoplasm of trachea, bronchus and lung

== ENCOUNTER → 2021-04-29 | Outpatient (CLI) | payer MEDICARE, BC ==
[~2021-04-29] MED LIST changes: +CYCL25CA23 PO; -CYCL25CA6 PO; +FLON1SPR NARES; -NS 1,000 ML IV ONE; +[UNRECOGNIZED DRUG - OTHER] PO
--- NOTE | 2021-04-29 16:26 | REP ---
INDICATION: RT FLANK PAIN. COMPARISON: None. TECHNIQUE: Standard renal sonography with evaluation of the bladder with grayscale and color imaging. FINDINGS: Right kidney is 7.8 x 4.4 x 3.8 cm. Cortical echogenicity is greater than that of the adjacent liver. There is thinning of the cortex and diffuse renal atrophy. No renal mass, hydronephrosis or stone. No visible hydroureter. The left kidney is 9.2 x 4.3 x 4.9 cm. It also has some sinus lipomatosis there is less cortical thinning. The left kidney is isointense to slightly hyperintense to the hepatic parenchymal echogenicity. There is no hydronephrosis, stone, mass or cyst. No visible hydroureter. The bladder is partly filled but without wall thickening, mass, cyst stone or layering debris. No ureteral jet phenomenon observed with color imaging. IMPRESSION: 1. There is bilateral renal atrophy, right greater than left, and with no visible stone, cyst, mass or hydronephrosis on either side. Ureters are obscured along most of their course. 2. Renal cortical echogenicity is greater than or equal to that of the liver consistent with medical renal disease. 3. Bladder without any acute abnormality. During observation with color imaging there is no demonstrated ureteral jet during the course of that observation although the bladder was already partially filled. <Electronically signed by Juancho Veliz > 04/29/21 [id number]
== END ==
LOC: M RAD 15:44
PROVIDERS: ATTEND Internal Medicine
DX: N26.1 Atrophy of kidney (terminal) (principal); N18.9 Chronic kidney disease, unspecified

== ENCOUNTER → 2021-08-27 | Outpatient (REF) | payer MEDICARE, BC | LOC: M LAB REF 17:03 | PROVIDERS: ATTEND Physician Assistant | DX: R35.0 Frequency of micturition (principal) ==

== ENCOUNTER 2021-09-20 12:11 | Inpatient (IN) | payer MEDICARE, BC ==
[~2021-09-20] VITALS: Ht 157.5 cm; Wt 74.6 kg
[2021-09-20] VITALS (11 sets, daily range): BP systolic 116–206; BP diastolic 57–91; PULSE 63
[2021-09-20] MEDS ORDERED: NITROGLYCERIN 0.4 MG SUBL TABLET SL STA ×2 (16:28→16:53)
[2021-09-20] MEDS ORDERED: ROCA0.5C PO (16:48)
[2021-09-20] MEDS ORDERED: AMLO1TAB24 PO (16:48)
[2021-09-20] MEDS ORDERED: HOME MED LIST COMPLETE! XX SCH (16:50)
[2021-09-20 16:59] LABS: ALBUMIN 3.6 GM/DL (3.2-5.2); BILIRUBIN,TOTAL 0.8 MG/DL (0.2-1.0); CALCIUM LEVEL 9.1 MG/DL (8.8-10.2); CREATININE FOR GFR 1.39 MG/DL (0.55-1.30); GLOMERULAR FILTRATION RATE 39.2 (>39); POTASSIUM SERUM 4.9 MEQ/L (3.5-5.1); TOTAL PROTEIN 5.9 GM/DL (6.4-8.2)
[2021-09-20 17:00] LABS: HEMATOCRIT 40.9 % (36.0-47.0); HEMOGLOBIN 13.6 g/dl (12.0-15.5); MEAN CORPUSCULAR HEMOGLOBIN 32.9 pg (27.0-33.0); MEAN CORPUSCULAR HGB CONC 33.3 g/dl (32.0-36.5); MEAN CORPUSCULAR VOLUME 98.8 fl (80.0-96.0); PLATELET COUNT, AUTOMATED 172 10^3/uL (150-450); RED BLOOD COUNT 4.14 10^6/uL (4.00-5.40); WHITE BLOOD COUNT 6.3 10^3/uL (4.0-10.0)
[2021-09-20] MEDS ORDERED: hydrALAZINE 20MG/ML 1ML VIAL (J0360 PER 20MG) IV PRN (17:00)
[2021-09-20] MEDS ORDERED: NITROGLYCERIN 0.4 MG SUBL TABLET SL PRN (17:00)
[2021-09-20 17:10] LABS: INR 1.08; PROTHROMBIN TIME 14.5 SECONDS (12.7-14.5)
[2021-09-20 17:11] LABS: PARTIAL THROMBOPLASTIN TIME 26.7 SECONDS (25.9-37.0)
[2021-09-20] MEDS ORDERED: traMADol 50 MG TAB PO PRN (17:30)
[2021-09-20] MEDS: ACETAMINOPHEN TAB 650MG DOSE (2X325MG) PO PRN (17:41)
[2021-09-20] MEDS: HYDROXYCHLOROQUINE 200 MG TAB PO SCH (19:32)
[2021-09-20] MEDS: POLYVINYL ALCOHOL OPHTH SOLN 15 ML(LIQUITEARS) OU SCH (19:33)
--- NOTE | 2021-09-20 20:29 | HPEPDOC ---
General Date of Admission Sep 20, 2021 at 15:00 Date of Service: Sep 20, 2021 Chief Complaint The patient is a 76-year-old female admitted with a reason for visit of Chest Pain R/O [place] R/O Acs. History of Present Illness Mrs. Blake is a 76-year-old female with hypertension and coronary artery disease status post stents who presents with chest pain. On Monday, she noticed that she started to have shortness of breath with ambulation. Is very difficult for her to climb stairs. At lunch, she had an orange and a salad. Afterward she became nauseous. She had left-sided chest pain that felt similar to her previous heart attack. She describes as a sharp pain, 7 out of 10. Lasted for about 45 seconds. After vomiting she felt better. This pain returned this morning at 6 AM. Lasted for about 45 seconds. He returned again at 7 AM lasting about 45 seconds. She went to the ED and [facility]. While there she had a negative troponin but she has new lead I and lead II T wave depression. They reached out to patient's insulation cupola operator, Dr. Muro who cleared the patient to come to our hospital for evaluation. When I saw patient, she did not have any shortness of breath or chest pain. She also denied nausea at this time. After I left, her chest pain had returned rating about a 3 out of 10. After 2 rounds of sublingual nitro, pain resolved. I discussed with Dr. Muro who will see the patient here in the hospital. We will continue trending troponins and order an echocardiogram. Patient will be admitted for chest pain rule out ACS. Home Medications Scheduled Amlodipine Besylate (Amlodipine Besylate) 5 Mg Tablet, 5 MG PO DAILY, (Reported) Aspirin (Ecotrin) 81 Mg Tablet.dr, 81 MG PO DAILY, (Reported) Atorvastatin Calcium (Atorvastatin Calcium) 20 Mg Tab, 20 MG PO DAILY, (Reported) NOON Calcitriol (Rocaltrol) 0.5 Mcg Capsule, 0.5 MCG PO DAILY, (Reported) Carvedilol (Carvedilol) 12.5 Mg Tablet, 12.5 MG PO BID, (Reported) Clopidogrel Bisulfate (Clopidogrel) 75 Mg Tab, 75 MG PO DAILY, (Reported) Cyclosporine (Restasis) 0.05% [place], 1 DROP OU QHS, (Reported) Docusate Sodium (Colace) 100 Mg Capsule, 100 MG PO DAILY, (Reported) Fluticasone Propionate (Flonase Allergy Relief) 9.9 Ml [place].susp, 2 SPRAY NARES DAILY, (Reported) Hydroxychloroquine Sulfate (Hydroxychloroquine Sulfate) 200 Mg Tab, 200 MG PO BID, (Reported) Irbesartan (Irbesartan) 150 Mg Tablet, 150 MG PO DAILY, (Reported) Magnesium Oxide (Magnesium) 400 Mg Capsule, 400 MG PO DAILY, (Reported) [place]-3/Dha/Epa/Fish Oil ([place]-3 Fish Oil 1,000 mg Sfgl) 1,000 Mg Capsule, 3 CAP PO DAILY, (Reported) Pantoprazole Sodium (Pantoprazole Sodium) 40 Mg Tab, 40 MG PO QHS, (Reported) Tocilizumab (Actemra) 162 Mg/0.9 Ml Syringe, 0.9 ML INJ 1XWK, (Reported) WEDNESDAYS Vit A/Vit C/Vit E/Zinc/Copper (Preservision Areds Softgel) 1 Each Capsule, 1 CAP PO DAILY, (Reported) [Prevagen Extra Strg] , 20 MG PO DAILY, (Reported) Scheduled PRN Cevimeline HCl (Cevimeline HCl) 30 Mg Cap, 30 MG PO BID PRN for DRY MOUTH, (Reported) Nitroglycerin (Nitrostat) 0.4 Mg Subl, 0.4 MG SL for CHEST PAIN, (Reported) Tramadol HCl (Tramadol HCl) 50 Mg Tab, 50 MG PO Q8H PRN for PAIN, (Reported) Allergies Coded Allergies: Iodinated Contrast Media (Verified Allergy, Severe, 10/19/20) Penicillins (Verified Allergy, Intermediate, RASH, 10/19/20) lactose (Verified Allergy, Unknown, 10/19/20) fluorescein (Verified Adverse Reaction, Mild, FAINTED/ SYNCOPY, 10/19/20) Past Medical History Medical History 1. Hypertension with renal disease 2. CAD 3. Hypercholesterolemia 4. Chronic kidney disease stage III 5. Depression 6. Rheumatoid arthritis 7. Allergic rhinitis 8. Migraine 9. Vitamin D deficiency Surgical History 1. Transabdominal hysterectomy with right salpingo-oophorectomy 2. Open cholecystectomy 3. Repair of a left shoulder dislocation 4. Arthroscopic meniscectomy of the right knee 5. Left knee surgery arthroscopic 6. Right knee surgery arthroscopy 7. Right mandibular bone chip extraction 8. Right rotator cuff repair 9. Four-vessel coronary artery bypass procedure for angina 10. Coronary stent to the PDA placed at [facility] 11. Coronary drug-eluting stent placed to the posterior lateral branch of the right coronary artery 12. Total right hip replacement 13. Bilateral cataract surgery 14. EGD with dilatation Family History Father: History of heart disease Mother: History of heart disease Social History * Smoker: Denies Alcohol: Denies Drugs: denies A-FIB/CHADSVASC A-FIB History Current/History of A-Fib/PAF?: No Review of Systems Constitutional: Denies: Chills, Fever Eyes: Denies: Vision change ENT: Denies: Sore Throat Skin: Denies: Rash Pulmonary: Reports: Dyspnea (With exertion); Denies: Cough Cardiovascular: Reports: Chest Pain (Intermittently) Gastrointestinal: Reports: Nausea (Once with vomiting on the weekend), Vomiting (Once with vomiting in the weekend); Denies: Abdominal Pain, Diarrhea Genitourinary: Denies: Dysuria Hematologic: Denies: Bruising Neurological: Denies: Numbness Psych: Denies: Anxiety, Depression Physical Examination General Exam: Positive: Alert, Cooperative Eye Exam: Positive: EOMI; Negative: Sclera icteric ENT Exam: Positive: Atraumatic Neck Exam: Positive: Supple Chest Exam: Positive: Clear to auscultation; Negative: Rales, Rhonchi, Wheezing Heart Exam: Positive: Rate Normal, Bradycardic, Regular Rhythm Abdomen Exam: Positive: Normal bowel sounds, Soft; Negative: Tenderness Extremity Exam: Negative: Edema Neuro Exam: Positive: Normal Speech, Cranial Nerves 3-12 NL Psych Exam: Positive: Mental status NL, Anxiety Vital Signs Vital Signs Date Time Temp Pulse Resp B/P (MAP) Pulse Ox O2 Delivery O2 Flow Rate FiO2 09/20/21 17:11 58 140/72 (94) 09/20/21 16:30 16 09/20/21 16:00 2.0 09/20/21 16:00 97.8 100 Nasal Cannula Laboratory Data Labs 24H Laboratory Tests 2 09/20/21 16:14: Nucleated Red Blood Cells % (auto) 0.0, Prothrombin Time 14.5H, Prothromb Time International Ratio 1.08, Activated Partial Thromboplast Time 26.7, Anion Gap 4L, Glomerular Filtration Rate 39.2, Calcium Level 9.1, Total Bilirubin 0.8, Aspartate Amino Transf (AST/SGOT) 22, Alanine Aminotransferase (ALT/SGPT) 30, Alkaline Phosphatase 58, Troponin I High Sensitivity 19.0, Total Protein 5.9L, Albumin 3.6, Albumin/Globulin Ratio 1.6 CBC/BMP Laboratory Tests 09/20/21 16:14 Assessment/Plan Mrs. Blake is a 76-year-old female with hypertension and coronary artery disease status post stents who presents with chest pain. It is atypical in that it is sharp but she said it felt similar to her previous heart attack. We'll trend high-sensitivity troponins and obtain an echocardiogram. I have consulted her insulation cupola operator, Dr. Ayon who will see her. Plan / VTE VTE Prophylaxis Ordered?: Yes Plan Plan 1. Chest pain rule ACS Patient has negative troponin at [facility] Patient has a negative high-sensitivity troponin here Repeat a 3-hour high sensitive troponin We will order an echocardiogram Cardiology consulted, recommendations appreciated 2. CAD and possible unstable angina Patient may have unstable angina Cardiology consulted Continue patient on atorvastatin, irbesartan, clopidogrel, aspirin, and as needed sublingual nitroglycerin Hold Coreg due to patient's bradycardia 3. Bradycardia Most likely secondary to beta-yarely Hold Coreg Monitor on telemetry 4. Hypertensive urgency On admission, blood pressure was 206/91 May be secondary to anxiety versus pain Improved with sublingual nitro As needed hydralazine Otherwise continue amlodipine and irbesartan 5. Rheumatoid arthritis We will continue the Plaquenil 6. GERD Continue pantoprazole 7. DVT prophylaxis Lovenox Disposition: Pending cardiology recommendations KARO PETERS DO Sep 20, 2021 20:24
--- NOTE | 2021-09-20 20:35 | CR ---
CONSULTATION DATE: 09/20/2021 HISTORY OF PRESENT ILLNESS: Mrs. Blake is known to me. She is a very pleasant, 76-year-old female who has established coronary artery disease with history of CABG and several interventions since. She presented to emergency room at [facility] earlier today after she had several episodes of chest discomfort. She first noticed that something was not normal on which means three days prior to presentation. She felt that there was some leg weakness and she noticed mild exertional dyspnea which is normally not the case, but she did not pay overly much attention until on Monday afternoon, she developed fairly suddenly sharp left upper chest discomfort that radiated towards her left shoulder. It lasted only about a minute or two its high severity but shortly thereafter was followed by two episodes of nausea and vomiting and then diminished some and became pressure-like sensation over her left upper chest that lasted several hours. She contemplated to go to urgent care but eventually decided not to and fell asleep but was woken on Monday with fairly severe chest discomfort again. At that point, she decided to wait again, took sublingual nitroglycerin which brought some partial relief but after the pain was persistent for several hours, she asked her to drive her to the emergency room. In the [place] emergency room, initial ECG did not reveal any ischemic abnormalities and her troponin was negative. She received a total of two nitroglycerin which brought the discomfort down to fairly minimal level but it never completely resolved. Then she had a relapse while in the emergency room when the pain became again more intense. At that point, she was transferred to [facility]. On arrival here, the discomfort was at fairly minimal level but she had one additional episode when she was already in PCU where the pain again became more severe from baseline about 2/10 intensity and pressure-like to sharp shooting pain that again improved partially after she received two sublingual nitroglycerins. At the time of my dictation, she is basically pain free even though she admits that she still has some minimal residual pressure-like discomfort. Her EKG and cardiac enzymes so far have been completely negative. Patient has established CAD with history of CABG in 2010 (WATSON to diagonal sequential to LAD, free ALEXANDRE to obtuse marginal, SVG to PDA). Since then, she had two cardiac interventions. One was to PDA behind the attachment of the graft in 2014 and the second one, intervention to PL branch of RCA in 2017. Her last cardiac catheterization was in April, that revealed rather diffuse three-vessel coronary artery disease but all bypasses and stents were widely patent. There was normal LVEDP and normal LV systolic function. PAST MEDICAL HISTORY: 1. Coronary artery disease as above. 2. Rheumatoid arthritis. 3. Hypertension. 4. Hyperlipidemia. 5. Chronic renal insufficiency, stage 3. 6. Dyslipidemia. SURGICAL HISTORY: 1. CABG. 2. Appendectomy. 3. Cholecystectomy. 4. Hysterectomy. 5. Arthroscopic knee surgery. 6. Right shoulder surgery. 7. Right hip replacement. OUTPATIENT MEDICATIONS: 1. Tylenol as needed. 2. Actemra injection once a week. 3. Amlodipine 5 mg a day. 4. Prevagen p.o. 5. Vitamin C 1 gm twice a day. 6. Aspirin 81 mg a day. 7. Atorvastatin 20 mg a day. 8. Calcitriol 0.5 mcg a day. 9. Carvedilol 12.5 twice a day. 10. Evoxac 30 mg twice a day. 11. Plavix 75 mg a day. 12. Flonase one spray to each nostril once a day. 13. Plaquenil 200 mg twice a day. 14. Irbesartan 150 mg a day. 15. Magnesium oxide 400 mg a day. 16. Nitroglycerin as needed. 17. [place]-3 fatty acids. 18. Pantoprazole 40 mg a day. 19. Tramadol 50 mg, take two tablets every eight hours as needed. ALLERGIES: SHE REPORTS INTOLERANCE OR ALLERGIES TO IV CONTRAST, PENICILLIN, LACTOSE, RANEXA, VENLAFAXINE AND METHOTREXATE. SOCIAL HISTORY: Patient never smoked. There is no significant alcohol use. She is and lives with her . FAMILY HISTORY: Her father had a stroke and brother has coronary artery disease. REVIEW OF SYSTEMS: She denies any recent fever, chills, diarrhea. She had nausea and vomiting as per HPI. She had chest as per HPI. She has mildly increased shortness of breath as per HPI. No syncope. She had a single episode of palpitations that seemed pretty brief. The rest of review of systems is negative. PHYSICAL EXAMINATION: Mrs. Blake is an elderly white female who appears actually younger than her calendar age. She is comfortable in a PCU bed, does note appear to be in any distress. She does not appear particularly anxious which she normally does. The last vital signs: Blood pressure 140/72. Heart rate has been in the 50. She is afebrile. Saturation is 100% on two liters oxygen by nasal cannula. Weight was recorded as 76 kg. Her JVP is not high. I do not appreciate any carotid bruit. Lungs are clear with good air movement. Heart exam reveals regular rhythm. I do not appreciate any gallop, rub or murmur. There is healed sternotomy scar. Abdomen is soft without obvious tenderness or rebound tenderness. I do not appreciate hepatosplenomegaly. Extremities are free of edema. Peripheral pulses are palpable on both extremities. She has typical deformities of her hands consistent with rheumatoid arthritis. Neurologically, she is intact. She is certainly alert and oriented, appropriate, moves all four extremities and there is no focal weakness. LABORATORY DATA: Basic metabolic panel reveals sodium 140, potassium 4.9, BUN 26, creatinine 1.4, glucose 90, normal liver function tests. Albumin is 3.6. CBC: WBC count 6.3, hemoglobin 13.6, hematocrit 40.9, platelet count 172,000. INR is 1.1. EKG reveals sinus rhythm without ST-T abnormalities. Her troponin, high sensitive troponin was 19 which is completely normal. ASSESSMENT AND PLAN: Mrs. Blake is a 76-year-old female who has established an extensive CAD with history of four-vessel CABG in 2010 and two coronary interventions since, one in 2014 and one in 2017. Her last cardiac catheterization a little more than a year and a half ago revealed patent stent and bypasses. She now presents with chest discomfort that has features suggestive of noncardiac etiology but it has been recurrent and partially relieved by sublingual nitroglycerin. In spite of many hours of discomfort, there is no evidence for troponin elevation or ST segment shift on EKG. She is already on appropriate medication at her baseline. At this point, I recommend to continue observation overnight provided her troponin remains normal tomorrow morning and that her EKG also remains unchanged. I would ambulate the patient and if she can ambulate without recurrence of chest discomfort, we should be able to discharge her with plan to perform outpatient stress testing in the future. On the other hand if there is objection evidence for ischemia or troponin becomes elevated then obviously this approach will have to be reevaluated.
[2021-09-20] MEDS ORDERED: PANTOPRAZOLE 40MG TAB (PROTONIX) PO SCH (21:00)
[2021-09-20] MEDS ORDERED: ENOXAPARIN 30MG/0.3ML SYRINGE (J1650 PER 10MG) SC SCH (21:00)
[2021-09-21] VITALS: BP 119/60
[2021-09-21 04:00] VITALS: BP 114/58
[2021-09-21 05:22] LABS: HEMATOCRIT 39.6 % (36.0-47.0); HEMOGLOBIN 13.2 g/dl (12.0-15.5); MEAN CORPUSCULAR HEMOGLOBIN 33.1 pg (27.0-33.0); MEAN CORPUSCULAR HGB CONC 33.3 g/dl (32.0-36.5); MEAN CORPUSCULAR VOLUME 99.2 fl (80.0-96.0); PLATELET COUNT, AUTOMATED 164 10^3/uL (150-450); RED BLOOD COUNT 3.99 10^6/uL (4.00-5.40); WHITE BLOOD COUNT 5.3 10^3/uL (4.0-10.0)
[2021-09-21 05:54] LABS: CREATININE FOR GFR 1.31 MG/DL (0.55-1.30); POTASSIUM SERUM 4.3 MEQ/L (3.5-5.1)
[2021-09-21] MEDS: ACETAMINOPHEN TAB 650MG DOSE (2X325MG) PO PRN (06:21)
[2021-09-21 08:00] VITALS: BP 151/72
[2021-09-21 08:51] VITALS: BP 107/56
[2021-09-21] MEDS: POLYVINYL ALCOHOL OPHTH SOLN 15 ML(LIQUITEARS) OU SCH ×2 (08:52→12:42)
[2021-09-21] MEDS: HYDROXYCHLOROQUINE 200 MG TAB PO SCH (08:52)
[2021-09-21] MEDS ORDERED: CLOPIDOGREL 75 MG TAB PO SCH (09:00)
[2021-09-21] MEDS ORDERED: CALCITRIOL 0.25 MCG CAP (S0169) PO SCH (09:00)
[2021-09-21] MEDS ORDERED: IRBESARTAN 150MG TAB PO SCH (09:00)
[2021-09-21] MEDS ORDERED: amLODIPine 5 MG TAB PO SCH (09:00)
[2021-09-21] MEDS ORDERED: OCUVITE 1 TAB PO SCH (09:00)
[2021-09-21] MEDS ORDERED: FLUTICASONE PROP 0.05% NASAL SPRAY 16 GM (FLONASE) NARES SCH (09:00)
[2021-09-21] MEDS ORDERED: ASPIRIN 81MG ENTERIC TABLET PO SCH (09:00)
[2021-09-21] MEDS ORDERED: OMEGA-3 1000MG CAPSULE PO SCH (09:00)
[2021-09-21] MEDS ORDERED: DOCUSATE SODIUM 100MG CAPSULE PO SCH (09:00)
[2021-09-21 11:23] LABS: CK-MB VALUE MASS 1.2 NG/ML (<3.6); MB/CK RELATIVE INDEX 1.33 (< OR =4)
[2021-09-21 12:00] VITALS: BP 142/65
[2021-09-21] MEDS ORDERED: ATORVASTATIN 20 MG TAB PO SCH (12:00)
--- NOTE | 2021-09-21 12:03 | REP ---
INDICATION: r/o DVT COMPARISON: None. TECHNIQUE: Schmidt scale and color Doppler evaluation using linear high frequency transducer. FINDINGS: Ultrasound examination of the right and left lower extremity deep venous structures from the common femoral vein through the popliteal vein demonstrates normal compressibility, flow and wave patterns in response to respiration and augmentation. Evaluation of the calf veins demonstrates normal compressibility to the bilateral posterior tibial and peroneal veins. There is no evidence for deep venous thrombosis. IMPRESSION: No evidence for deep venous thrombosis. <Electronically signed by Demarcus Chaves > 09/21/21 1200
--- NOTE | 2021-09-21 12:46 | DS.PDOC ---
Discharge Summary General Date of Admission Sep 20, 2021 at 15:00 Date of Discharge 09/21/21 Discharge Summary PROCEDURES PERFORMED DURING STAY: [None]. ADMITTING DIAGNOSES: chest pain Hx CAD Bradycardia Hypertensive urgency hx rheumatoid arthritis GERD DISCHARGE DIAGNOSES: chest pain Hx CAD Bradycardia Hypertensive urgency hx rheumatoid arthritis GERD COMPLICATIONS/CHIEF COMPLAINT: Chest Pain R/O [place] R/O Acs. HISTORY OF PRESENT ILLNESS: Obtain from H&P: "Mrs. Blake is a 76-year-old female with hypertension and coronary artery disease status post stents who presents with chest pain. On Monday, she noticed that she started to have shortness of breath with ambulation. Is very difficult for her to climb stairs. At lunch, she had an orange and a salad. Afterward she became nauseous. She had left- sided chest pain that felt similar to her previous heart attack. She describes as a sharp pain, 7 out of 10. Lasted for about 45 seconds. After vomiting she felt better. This pain returned this morning at 6 AM. Lasted for about 45 seconds. He returned again at 7 AM lasting about 45 seconds. She went to the ED and [facility]. While there she had a negative troponin but she has new lead I and lead II T wave depression. They reached out to patient's industrial psychology professor, Dr. Muro who cleared the patient to come to our hospital for evaluation. When I saw patient, she did not have any shortness of breath or chest pain. She also denied nausea at this time. After I left, her chest pain had returned rating about a 3 out of 10. After 2 rounds of sublingual nitro, pain resolved. I disc ussed with Dr. Muro who will see the patient here in the hospital. We will continue trending troponins and order an echocardiogram. Patient will be admitted for chest pain rule out ACS. HOSPITAL COURSE: 1. Chest pain rule ACS Patient has negative troponin at [facility] Patient has a negative high-sensitivity troponin here Repeat a 3-hour high sensitive troponin 2D echocardiogram was performed Cardiology consulted, seen by Dr. Hays. Patient showed no signs if ischemic changes on EKG, nor troponin elevation despite hours of chest discomfort. Per plan noted in cardiology consult, patient was ambulated without recurrence of chest pain. She is appropriate for DC per Dr. Hays, and she is to follow up in cardiology clinic in early Oct 2021 for cardiac stress test. 2. CAD and possible unstable angina Cardiology consulted Continue patient on atorvastatin, irbesartan, clopidogrel, aspirin, and as needed sublingual nitroglycerin - c/w present medication regimen - f/u cardiology clinic in Oct 2021. 3. Bradycardia Most likely secondary to beta-yarely -EKG 1st deg block Hold Coreg 4. Hypertensive urgency On admission, blood pressure was 206/91 May be secondary to anxiety versus pain Improved with sublingual nitro As needed hydralazine Otherwise continue amlodipine and irbesartan - BP normalized, 142/65 prior to DC 5. Rheumatoid arthritis We will continue the Plaquenil 6. GERD Continue pantoprazole 7. DVT prophylaxis Lovenox DISCHARGE MEDICATIONS: Please see below. ALLERGIES: Please see below. PHYSICAL EXAMINATION ON DISCHARGE: VITAL SIGNS: please see below General: NAD, comfortable HEENT: PERRLA, EOMI, sclerae clear Neck: supple, normal ROM, no JVD Respiratory: lungs CTAB, no wheeze, no rales, no crackles CVS: RRR, normal S1, S2, no murmurs Abdo: soft, no masses, no hepatosplenomegaly, BS+, no rebound tenderness Extremities: no edema, pulses 2+ MSK: no joint deformities, normal ROM Neuro: no focal neuro deficits, moving all 4 extremities, CN2-12 intact. Strength 5/5 in all 4 extremities. No nystagmus. Psych: calm, cooperative, AAO x 3 LABORATORY DATA: Please see below. IMAGING: Bilateral venous duplex (09/21/21): IMPRESSION: No evidence for deep venous thrombosis. PROGNOSIS: good ACTIVITY: [As tolerated]. DIET: 2G sodium restricted diet. DISCHARGE PLAN: DC home. F/u PCP 3-5 days. F/u Dr. Hays office, planned for [facility] stress test early October 2021. Hold carvedilol on DC. Increase dose of amlodipine to 10 mg PO daily. DISPOSITION: Home DISCHARGE INSTRUCTIONS: . Please follow-up with your primary care doctor within 3-5 days . Please follow-up with cardiology within 1-2 weeks . Please taking medications as prescribed. . If you develop bleeding, chest pain, shortness of breath, seizures, nausea, fevers, or otherwise worsening of your symptoms, please call 911 or return to the nearest emergency room ITEMS TO FOLLOWUP ON ON OUTPATIENT: 2D echocardiogram DISCHARGE CONDITION: [Stable]. TIME SPENT ON DISCHARGE: 35 minutes Vital Signs/I&Os Vital Signs Date Time Temp Pulse Resp B/P (MAP) Pulse Ox O2 Delivery O2 Flow Rate FiO2 09/21/21 12:00 98.1 55 16 142/65 (90) 98 Room Air 09/21/21 08:00 2.0 I&O- Last 24 Hours up to 6 AM 09/21/21 06:00 Intake Total 540 ml Output Total 1850 ml Balance -1310 ml Laboratory Data Labs 24H Laboratory Tests 2 09/20/21 16:14: Nucleated Red Blood Cells % (auto) 0.0, Prothrombin Time 14.5H, Prothromb Time International Ratio 1.08, Activated Partial Thromboplast Time 26.7, Anion Gap 4L, Glomerular Filtration Rate 39.2, Calcium Level 9.1, Total Bilirubin 0.8, Aspartate Amino Transf (AST/SGOT) 22, Alanine Aminotransferase (ALT/SGPT) 30, Alkaline Phosphatase 58, Troponin I High Sensitivity 19.0, Total Protein 5.9L, Albumin 3.6, Albumin/Globulin Ratio 1.6 09/20/21 19:15: Troponin I High Sensitivity 20.0 09/21/21 04:50: Nucleated Red Blood Cells % (auto) 0.0, Anion Gap 3L, Glomerular Filtration Rate 42.0, Calcium Level 9.0, Magnesium Level 2.0 09/21/21 10:17: Troponin I High Sensitivity 16.0, D-Dimer, Quantitative 272.93, Total Creatine Kinase 90, Creatine Kinase MB 1.2, Creatine Kinase MB Relative Index 1.33 CBC/BMP Laboratory Tests 09/20/21 16:14 09/21/21 04:50 Discharge Medications Scheduled Amlodipine Besylate (Amlodipine Besylate) 5 Mg Tablet, 10 MG PO DAILY Aspirin (Ecotrin) 81 Mg Tablet.dr, 81 MG PO DAILY, (Reported) Atorvastatin Calcium (Atorvastatin Calcium) 20 Mg Tab, 20 MG PO DAILY, (Reported) NOON Calcitriol (Rocaltrol) 0.5 Mcg Capsule, 0.5 MCG PO DAILY, (Reported) Clopidogrel Bisulfate (Clopidogrel) 75 Mg Tab, 75 MG PO DAILY, (Reported) Cyclosporine (Restasis) 0.05% Droperette, 1 DROP OU QHS, (Reported) Docusate Sodium (Colace) 100 Mg Capsule, 100 MG PO DAILY, (Reported) Fluticasone Propionate (Flonase Allergy Relief) 9.9 Ml [place].susp, 2 SPRAY NARES DAILY, (Reported) Hydroxychloroquine Sulfate (Hydroxychloroquine Sulfate) 200 Mg Tab, 200 MG PO BID, (Reported) Irbesartan (Irbesartan) 150 Mg Tablet, 150 MG PO DAILY, (Reported) Magnesium Oxide (Magnesium) 400 Mg Capsule, 400 MG PO DAILY, (Reported) Cayuga-3/Dha/Epa/Fish Oil (Cayuga-3 Fish Oil 1,000 mg Sfgl) 1,000 Mg Capsule, 3 CAP PO DAILY, (Reported) Pantoprazole Sodium (Pantoprazole Sodium) 40 Mg Tab, 40 MG PO QHS, (Reported) Tocilizumab (Actemra) 162 Mg/0.9 Ml Syringe, 0.9 ML INJ 1XWK, (Reported) WEDNESDAYS Vit A/Vit C/Vit E/Zinc/Copper (Preservision Areds Softgel) 1 Each Capsule, 1 CAP PO DAILY, (Reported) [Prevagen Extra Strg] , 20 MG PO DAILY, (Reported) Scheduled PRN Cevimeline HCl (Cevimeline HCl) 30 Mg Cap, 30 MG PO BID PRN for DRY MOUTH, (Reported) Nitroglycerin (Nitrostat) 0.4 Mg Subl, 0.4 MG SL Q5MP PRN for CHEST PAIN max 3 doses Tramadol HCl (Tramadol HCl) 50 Mg Tab, 50 MG PO Q8H PRN for PAIN, (Reported) Allergies Coded Allergies: Iodinated Contrast Media (Verified Allergy, Severe, 10/19/20) Penicillins (Verified Allergy, Intermediate, RASH, 10/19/20) lactose (Verified Allergy, Unknown, 10/19/20) fluorescein (Verified Adverse Reaction, Mild, FAINTED/ SYNCOPY, 10/19/20) SAIMA BRODERICK MD Sep 21, 2021 12:46
[2021-09-21] MEDS ORDERED: AMLO1TAB24 PO (13:28)
[2021-09-21] MEDS ORDERED: NITR4TASL SL (13:28)
--- NOTE | 2021-09-22 07:20 | ECGEPIP ---
[facility] Test Date: 2021-09-20 Pat Name: DYLAN LONGORIA Department: Room: [place] [address] Gender: Female Sawmilling Operator: ANTHONY : 1945 Requested By: KARO Strong Order Number: [id number] Reading MD: Brando Hays Measurements Intervals [place] Rate: 53 P: 17 VT: 216 QRS: 10 QRSD: 102 T: 34 QT: 456 QTc: 427 Interpretive Statements Sinus bradycardia with 1st degree AV block Incomplete right bundle branch block SIMILAR TO 07/16/19 Electronically Signed on 09-22-2021 7:20:03 EST by Brando Hays
--- NOTE | 2021-09-22 09:51 | ECHO ---
ECHOCARDIOGRAM DATE OF PROCEDURE: 09/21/2021 Age: Gender: F Height: 158 cm Weight: 76 kg REFERRING PHYSICIAN: Dr. Roland Neri INDICATION: Chest pain MEASUREMENTS: IVS: 1.3 LV: 4.4 LVPW: 1.3 LA: 3.9 Aorta: 2.9 IVC: 1.2 Mitral E wave velocity is 98; A wave 102 E prime septal: 5.9 E prime lateral: 8.6 FINDINGS: This study is of good technical quality; underlying sinus rhythm. Left ventricle has normal size. Mild left ventricular hypertrophy is noted. Overall estimated left ventricular ejection fraction (LVEF) approximately 65%, which is exactly what computer calculated. Right ventricle has also normal size and systolic function. Left atrium is at least mildly enlarged. Right atrium was poorly seen. Aortic valve is tricuspid. It is mildly sclerotic; mobility is preserved. Mitral and tricuspid valve appear normal. Pulmonic valve was poorly visualized but also grossly appears normal. No pericardial effusion is noted. Inferior vena cava is normal size and appropriately collapses with inspiration indicative of normal central venous pressure. Aortic root, aortic arch and visualized segment of abdominal aorta all appear normal. Doppler interrogation of the aortic valve reveals no stenosis and trivial insufficiency. There is also mild mitral and trace tricuspid insufficiency. Calculated pulmonary artery pressure is within normal limits. Mitral inflow pattern and tissue Doppler imaging of mitral annulus revealed grade 1 diastolic dysfunction. CONCLUSIONS: 1. Study is of good technical quality; underlying sinus rhythm. 2. Normal left ventricle (LV) size with mild left ventricular hypertrophy and preserved left ventricular (LV) systolic function. Grade 1 diastolic dysfunction. 3. No hemodynamically significant valvular disease. 4. Normal central venous pressure; normal pulmonary artery pressure.
== END 2021-09-21 15:36 | disposition home health service (06) | DRG 303 ==
LOC: M PCU 15:00
PROVIDERS: ADMIT Internal Medicine; ATTEND Family Medicine
DX: I25.110 Atherosclerotic heart disease of native coronary artery with unstable angina pectoris (principal); R07.89 Other chest pain; N18.30 Chronic kidney disease, stage 3 unspecified; E78.00 Pure hypercholesterolemia, unspecified; F32.A Depression, unspecified; M06.9 Rheumatoid arthritis, unspecified; I12.9 Hypertensive chronic kidney disease with stage 1 through stage 4 chronic kidney disease, or unspecified chronic kidney disease; J30.9 Allergic rhinitis, unspecified; I16.0 Hypertensive urgency; K21.9 Gastro-esophageal reflux disease without esophagitis; R00.1 Bradycardia, unspecified; E73.9 Lactose intolerance, unspecified; G43.909 Migraine, unspecified, not intractable, without status migrainosus; E55.9 Vitamin D deficiency, unspecified; Z90.49 Acquired absence of other specified parts of digestive tract; Z95.5 Presence of coronary angioplasty implant and graft; Z96.641 Presence of right artificial hip joint; Z98.41 Cataract extraction status, right eye; Z98.42 Cataract extraction status, left eye; Z79.82 Long term (current) use of aspirin; Z79.02 Long term (current) use of antithrombotics/antiplatelets; Z79.899 Other long term (current) drug therapy; Z88.0 Allergy status to penicillin; Z88.8 Allergy status to other drugs, medicaments and biological substances

== ENCOUNTER → 2022-03-24 | Outpatient (CLI) | payer MEDICARE, BC ==
[~2022-03-24] MED LIST changes: +ROCA0.5C PO
== END ==
LOC: M RAD 14:18
PROVIDERS: ATTEND Internal Medicine
DX: M41.9 Scoliosis, unspecified (principal); M51.36 Other intervertebral disc degeneration, lumbar region; M54.50 Low back pain, unspecified

== ENCOUNTER → 2024-10-08 | Outpatient (CLI) | payer MEDICARE, BC ==
[~2024-10-08] MED LIST changes: -HYDR200T3 PO; +HYDR200T46 PO; +IRBE150T27 PO; -IRBE150T7 PO; -LEFL1TAB4 PO; +LEFL20TA15 PO; +ONDA-282 PO; -ONDA4TAB6 PO
== END ==
LOC: M RAD 07:40
PROVIDERS: ATTEND Internal Medicine Nephrology
DX: I70.1 Atherosclerosis of renal artery (principal)

== ENCOUNTER → 2025-01-10 | Outpatient (CLI) | payer MEDICARE, BC | LOC: M WHC 08:43 | PROVIDERS: ATTEND Student in an Organized Health Care Education/Training Program | DX: Z13.820 Encounter for screening for osteoporosis (principal) ==